=== PATIENT | female | born 1980 | race Caucasian/White ===

== ENCOUNTER 2017-04-11 19:59 | Inpatient (IN) | payer OTHER ==
--- NOTE | 2017-04-11 20:08 | EDPHY ---
H & P Stated Complaint: M1, SI with plan - Personal History LMP (Females 10-55): IUD In Place Current Tetanus/Diphtheria Vaccine: Yes Tetanus Vaccine Date: 2011 - Medical/Surgical History Hx Asthma: No Hx Chronic Respiratory Disease: No Hx Diabetes: No Hx Cardiac Disease: No Hx Renal Disease: No Hx Cirrhosis: No Hx Alcoholism: Yes Hx HIV/AIDS: No Hx Splenectomy or Spleen Trauma: No Other PMH: endometreosis and dysplasia surgery in 2011, oral surgery 2016, ETOH abuse - Social History Smoking Status: Former smoker Time Seen by Provider: 04/11/17 20:07 Constitutional: Initial Vital Signs Temperature (C) 37 C 04/11/17 20:02 Heart Rate 66 04/11/17 20:02 Respiratory Rate 16 04/11/17 20:02 Blood Pressure 142/101 H 04/11/17 20:02 O2 Sat (%) 96 04/11/17 20:02 O2 Delivery Mode Room Air Allergies/Adverse Reactions: valacyclovir [From Valtrex] Allergy (Verified 04/11/17 20:01) Home Medications: Medication Instructions Recorded Hydrocodon-Acetaminophen 5-325 04/11/17 Nuvaring Vaginal Ring 04/11/17 Medical Decision Making ED Course/Re-evaluation: CHIEF COMPLAINT: Psychiatric evaluation HISTORY OF PRESENT ILLNESS: This patient is a 36 year old female on M1 hold for suicidal ideation. Her therapist initiated the process when the patient revealed she has a plan to end her life on May 15 of this year, the 11th anniversary of being sober from alcohol. The patient has had two prior attempts, once by cutting her wrist and once by taking pills. Per M1 paperwork, she is intent on her plan and is engaging in last interactions with family and friends, and plans to stop seeing her therapist. She denies alcohol use, or "problems with drugs". She did take one hydrocodone yesterday. No recent illness or associated symptoms. REVIEW OF SYSTEMS: A 10 point review of systems was performed and is negative with the exception of the elements mentioned in the history of present illness. PHYSICAL EXAM: General Appearance: Alert, well hydrated, appropriate, and non-toxic appearing. Head: Atraumatic without scalp tenderness or obvious injury Eyes: Pupils equal, round, reactive to light and accommodation, EOMI, no trauma , no injection. Nose: Atraumatic, no rhinorrhea, clear. Throat: There is no erythema or exudates, no lesions, normal tonsils, mucus membranes moist. Neck: Supple, nontender, no lymphadenopathy. Respiratory: No retractions, no distress, no wheezes, and no accessory muscle use. Lungs are clear to auscultation bilaterally. Cardiovascular: Regular rate and rhythm. Good capillary refill all extremities. Gastrointestinal: Abdomen is soft, nontender, non-distended, no masses, no rebound, no guarding, no peritoneal signs. Musculoskeletal: Normal active ROM of all extremities, atraumatic. Neurological: Alert, appropriate, and interactive. Nonfocal neuro exam. Skin: No rashes, good turgor, no nodules on palpation. Past medical history: ETOH abuse Past surgical history: Endometriosis and dysplasia surgery in 2011, oral surgery 2017, Family history: Noncontributory Social history: Lives in [place]. DIFFERENTIAL DIAGNOSIS: The differential diagnosis for the patient's depression included but was not limited to functional and major depression, situational depression, medication side effect, drugs, and alcohol abuse. MEDICAL DECISION MAKING: Patient is in no acute distress and is hemodynamically stable. We are awaiting psychiatric team's evaluation. Patient has known history of psychiatric disorders and is here for evaluation. (Jah Culp) 12:12 a.m.- The patient has been accepted to [address] [place] [address] Od[address] We plan to transfer the patient to their currently. The EMTALA form has been completed by me. (Luz Maria Wang) - Data Points Laboratory Results: Laboratory Results 04/11/17 20:45 04/11/17 20:45 04/11/17 04/11/17 04/11/17 20:45 20:45 20:15 WBC 8.15 10^3/uL 10^3/uL (3.80-9.50) RBC 4.45 10^6/uL 10^6/uL (4.18-5.33) Hgb 13.1 g/dL g/dL (12.6-16.3) Hct 38.9 % % (38.0-47.0) MCV 87.4 fL fL (81.5-99.8) MCH 29.4 pg pg (27.9-34.1) MCHC 33.7 g/dL g/dL (32.4-36.7) RDW 12.4 % % (11.5-15.2) Plt Count 234 10^3/uL 10^3/uL (150-400) MPV 9.7 fL fL (8.7-11.7) Neut % (Auto) 65.9 % % (39.3-74.2) Lymph % (Auto) 26.1 % % (15.0-45.0) Johnston % (Auto) 6.9 % % (4.5-13.0) Eos % (Auto) 0.5 % L % (0.6-7.6) Baso % (Auto) 0.2 % L % (0.3-1.7) Nucleat RBC Rel Count 0.0 % % (0.0-0.2) Absolute Neuts (auto) 5.37 10^3/uL 10^3/uL (1.70-6.50) Absolute Lymphs (auto) 2.13 10^3/uL 10^3/uL (1.00-3.00) Absolute Monos (auto) 0.56 10^3/uL 10^3/uL (0.30-0.80) Absolute Eos (auto) 0.04 10^3/uL 10^3/uL (0.03-0.40) Absolute Basos (auto) 0.02 10^3/uL 10^3/uL (0.02-0.10) Absolute Nucleated RBC 0.00 10^3/uL 10^3/uL (0-0.01) Immature Gran % 0.4 % % (0.0-1.1) Immature Gran # 0.03 10^3/uL 10^3/uL (0.00-0.10) Sodium 139 mEq/L mEq/L (134-144) Potassium 4.0 mEq/L mEq/L (3.5-5.2) Chloride 109 mEq/L mEq/L (97-110) Carbon Dioxide 16 mEq/l L mEq/l (22-31) Anion Gap 14 mEq/L mEq/L (8-16) BUN 11 mg/dL mg/dL (7-23) Creatinine 0.9 mg/dL mg/dL (0.6-1.0) Estimated GFR > 60 Glucose 80 mg/dL mg/dL (70-100) Calcium 9.2 mg/dL mg/dL (8.5-10.4) Salicylates < 1.0 mg/dL L mg/dL (2.0-20.0) Urine Opiates Screen NEGATIVE (NEGATIVE) Acetaminophen < 10 mcg/mL L mcg/mL (10.0-30.0) Urine Barbiturates NEGATIVE (NEGATIVE) Ur Phencyclidine Scrn NEGATIVE (NEGATIVE) Ur Amphetamine Screen NEGATIVE (NEGATIVE) U Benzodiazepines Scrn NEGATIVE (NEGATIVE) Urine Cocaine Screen NEGATIVE (NEGATIVE) U Marijuana (THC) Screen NON-NEGATIVE H (NEGATIVE) Ethyl Alcohol < 10 mg/dL mg/dL (0-10) Departure - Departure Disposition: [facility] IP Clinical Impression: Suicidal ideation Condition: Good Referrals: NONE *PRIMARY CARE P,. [Primary Care Provider] - As per Instructions
[2017-04-11 20:53] LABS: % IMMATURE GRANULYOCYTES 0.4 % (0.0-1.1); ABSOLUTE IMMATURE GRANULOCYTES 0.03 10^3/uL (0.00-0.10); ADD DIFF? NO; ADD MORPH? NO; ADD SCAN? NO; ATYPICAL LYMPHOCYTE FLAG 50 (0-99); FRAGMENT RBC FLAG 0 (0-99); HEMATOCRIT 38.9 % (38.0-47.0); HEMOGLOBIN 13.1 g/dL (12.6-16.3); LEFT SHIFT FLG 0 (0-99); LIPEMIA HEMOLYSIS FLAG 80 (0-99); MEAN CELL HEMOGLOBIN 29.4 pg (27.9-34.1); MEAN CELL HEMOGLOBIN CONCENTR. 33.7 g/dL (32.4-36.7); MEAN CELL VOLUME 87.4 fL (81.5-99.8); MEAN PLATELET VOLUME 9.7 fL (8.7-11.7); PLATELET CLUMPS FLAG 0 (0-99); PLATELET COUNT 234 10^3/uL (150-400); RED BLOOD CELL COUNT 4.45 10^6/uL (4.18-5.33); RED CELL DISTRIBUTION WIDTH 12.4 % (11.5-15.2)
[2017-04-11 21:18] LABS: ANION GAP 14 mEq/L (8-16); CALCIUM 9.2 mg/dL (8.5-10.4); CARBON DIOXIDE 16 mEq/l (22-31); CHLORIDE 109 mEq/L (97-110); CREATININE 0.9 mg/dL (0.6-1.0); ETHANOL SERUM < 10 mg/dL (0-10); GLOMERULAR FILTRATION RATE > 60; GLUCOSE 80 mg/dL (70-100); SALICYLATE < 1.0 mg/dL (2.0-20.0); SODIUM 139 mEq/L (134-144)
[2017-04-12] MEDS ORDERED: LORazepam 0.5 MG TAB PO PRN (01:20)
[2017-04-12] MEDS ORDERED: ACETAMINOPHEN 325 MG TAB PO PRN (01:20)
[2017-04-12] MEDS ORDERED: MAGNESIUM HYDROXIDE 30 ML UDCUP PO PRN (01:20)
[2017-04-12] MEDS ORDERED: MAG HYDROX/AL HYDROX/SIMETH 30 ML UDCUP PO PRN (01:20)
[2017-04-12] MEDS ORDERED: NICOTINE POLACRILEX 2 MG GUM B PRN (01:20)
[2017-04-12] MEDS ORDERED: ACETAMINOPHEN 325 MG TAB ONE (01:25)
[2017-04-12] MEDS: IBUPROFEN 600 MG TAB PO PRN ×2 (12:13→21:15)
--- NOTE | 2017-04-12 14:09 | BAPA ---
[f rep st] ADMISSION PSYCHIATRIC ASSESSMENT DATE OF SERVICE: 04/12/2017 CHIEF COMPLAINT: "I have a plan to end my life on May 15. I can't go on like this." HISTORY OF PRESENT ILLNESS: Patient is a 36-year-old female who denies any specific previ ous psychiatric history, who was referred to the hospital on an M1 hold after seeing her therapist i n the community earlier in the day. She apparently had been seeing the therapist for about 3 weeks and had gone to this appointment to terminate stating that she no longer needed therapy and did not want to waste the money because she was planning to kill herself. She described to him, to her ex-h usband, to her recent ex-boyfriend and her boss that she had decided definitively to kill herself an d that she planned to do it on May 15 which was the date of her sobriety anniversary. She stat es that "I'm not depressed and I'm not crazy, I just want to end my life." She states that "I can't go on this way. I am just going through the motions. I thought I would give it a shot and see if there was any help and there wasn't." She denies again any feelings of depression, states that her appetite and sleep have been more normal in the last few weeks than they have been for a long time. She states that she has been journaling and has been writing about her feelings and her thoughts an d writing letters to her friends and family. She notes a number of stressors over the last 6 months including the finalization of her divorce and breaking up with her boyfriend. She states that this is a thought that she has had for some time, but that when she was on vacation in [place] with her b oyfriend about a month ago, she was suddenly overwhelmed with the realization that "I don't want to live anymore." She states they were riding bikes and supposed to be having a good time, but she had no feelings whatsoever and was unhappy and felt like things would never change for her. Patient ates she is not interested in further counseling, does not want to take any psychotropic medicines a nd does not need to be in the hospital. She states she is angry that she was placed on 72-hour hold because her sister was coming to visit from [place] and they had tickets to shows and were going to have a nice weekend. PAST PSYCHIATRIC HISTORY: History significant for 2 previous suicide attempts, one of the age of 12 , one at the age of 16. She states the one at the age of 16 was precipitated by a spontaneous AB. She has no previous psychiatric hospitalizations. She has most recently been seeing Tyrone Draper , phone #[phone]. He is an individual psychotherapist whom she has met with for the past 3 wee ks. She states that this was helpful and she had a good rapport with him, but she does not feel lik e she needs to "waste the money" because she is planning to kill herself. PAST MEDICAL HISTORY: Significant for polycystic ovary disease, endometriosis, chronic lower back p ain. No history of central nervous system disease. ALLERGIES: Valacyclovir. CURRENT MEDICATIONS: Include the NuvaRing and p.r.n. hydrocodone for back pain. SOCIAL HISTORY: The patient was born and raised in [place], [place]. She has lived for several years in [place] after moving here for her 's work. She states that they were for 6 year s and together for 10 years and recently several months ago. She has a sister and her pare nts who still live in [place] to whom she states she has a close relationship. 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 She is a high school graduate with several years of college studying architecture. 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 She reports no significant substance abuse. She does smoke marijuana occasionally, stating that she will "only smoke it if it is being passed around like at a concert," but her urine drug screen w as positive for marijuana. She states that she did smoke it at a concert this past weekend. The arti kendrick notes no other specific stresses at this time. The patient states that she has a group of fri ends to whom she is close who live locally. FAMILY HISTORY: Noncontributory per patient's report. She specifically denies any known history of mood disorders or suicide. ADMISSION LABORATORY: CBC is normal. Serum chemistries are normal. Urine drug screen is positive for marijuana. MENTAL STATUS EXAMINATION: Reveals a robust-appearing female who is neatly and casually d ressed. She interacts well with the examiner, displaying a euthymic, stable and appropriate affect and good social skills. Her mood is described as "fine." Her thought process is linear and goal di rected. Her thought content reveals no evidence of psychosis. She is alert and oriented to person, place, time, and situation and her sensorium is clear. Her intellect appears to be at least averag e as evidenced by her educational and occupational histories, fund of knowledge, and vocabulary. Sh e continues to endorse thoughts of suicide with a concrete plan to kill herself but will not disclos e what this is. Her insight and judgment appear to be marginal. IMPRESSION: Possible depressive disorder, possible cluster B personality traits, acute suicidality with plan, marginal supports, multiple recent relationship losses, work stress, separation from [facility] supports. Patient is a 36-year-old female with no particular psychiatric history, though she has had 2 previous overdoses. She appears to be in a rather enmeshed relationship with her recent ex-boyfr iend and has tremendous ambivalence about this, is closely linked to her thoughts of suicide, and I believe that either the relationship itself or what this has stirred up for her in the presence of a seemingly similar ambivalent relationship that has ended with her is at the root of some of her discontent and dissatisfaction with life that may be contributing to her suicidal thoughts. He r [id number] nature is difficult to understand. There is some help-seeking, help-rejecting flav or to it as she has told all of the people in her life who would react in the predictable way that s he was suicidal, then acts surprised that they acted to protect her. She also acts as if she cannot understand why others would be upset about this and in a somewhat adolescent fashion, she insists t hat it is her right to decide what to do with her life and nobody else should care. She has no evid ence of psychosis and though I believe her behaviors currently are unreasonable, I do not believe ot herwise that she lacks capacity. I do not identify any symptoms of acute mood disorder, be that dep ression or bipolar, and while she has certain cluster B personality traits, I do not identify a prim neo personality disorder at this time. I do not believe she is suffering from an organic illness th at is influencing her thoughts and she is not suffering from any known terminal illness that would j ustify physician-assisted suicide. PLAN: 1. Admit to the behavioral health services inpatient unit on an M1 hold. 2. Conduct serial interviews and try to decide whether or not she meets criteria for continued inpa tient stay due to her suicidality. There is a question as to the proximal nature of it given that s he states that she is going to kill herself in approximately a month. This would draw into some marcie bt the immediacy. It does seem a ruiz mariia statement, however, and at this time there would be no w ay to consider discharge until adequate evaluation is completed. 3. We will place on suicide precautions. 4. Will hold off on any medications till the diagnostic picture is clear as she is refusing them an yway. 5. Will communicate with patient's therapist and hopefully her family and hope to convene a family meeting if only with her sister who is supposed to be coming to town. Estimated length of stay is 5-7 days. /[id number]/MODL
--- NOTE | 2017-04-13 00:55 | BCON ---
[f rep st] BEHAVIORAL HEALTH CONSULTATION INTERNAL MEDICINE CONSULTATION DATE OF CONSULTATION: 04/12/2017 REFERRING PHYSICIAN: Dr. Odell REASON FOR REFERRAL: Medical clearance for inpatient behavioral health stay. HISTORY OF PRESENT ILLNESS: This patient was sent to [facility] on an M1 hold from her mental health clinic, where she had told her therapist that she was intending on committing suicide. She had a date in mind, which was May 15, which is the 10-year anniversary of sobriety, and she had made arrangements for care of her dog. She was evaluated by the mental health team and admitted for further psychiatric care. She currently reports that she feels emotionally numb. She also reports that she has back pain. She has an upper respiratory infection. She exacerbated her back pain through sneezing but saw a chiropractor several days ago, and her back pain has been improving. PAST MEDICAL HISTORY: 1. Polycystic ovary syndrome. 2. Back pain. 3. Ovarian cyst with dysplasia. 4. Genital herpes. PAST SURGICAL HISTORY: She has had a cyst removed from an ovary. MEDICATIONS PRIOR TO ADMISSION: 1. NuvaRing vaginal control. 2. Hydrocodone/acetaminophen 5/325 p.r.n. ALLERGIES: She reports an allergic reaction to valacyclovir which caused hives. SOCIAL HISTORY: She is single. She lives alone. She has a dog. 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 She is a nonsmoker. She uses occasional marijuana and "Tamy" when she attends concerts, and she reports that she has been abstinent from alcohol for most of 10 years. FAMILY HISTORY: Noncontributory. REVIEW OF SYSTEMS: She reports upper respiratory infection symptoms, though these are not severe. She reports back pain which has been improved, and she is using ice and she has found ibuprofen or acetaminophen to be helpful. She reports weight loss since October with a reduced appetite. She denies any symptoms referable to the thyroid including not feeling excessively warm or cold. She reports she always feels cold and that there has been no change in this. She does not have diaphoresis. She does not feel excessively fatigued. She has no tremor. Otherwise, a 10-point review of systems is negative. PHYSICAL EXAMINATION: VITAL SIGNS: Blood pressure is 136/66, heart rate is 60 , respiratory rate is 14, oxygen saturation is 97% on room air, temperature is 36.6 degrees centigrade. Her weight is 65.8 kg for a body mass index of 22. GENERAL: This is a well-nourished, well-developed woman. Appears her chronologic age. Cooperative and in no acute distress. HEENT: Extraocular movements are intact. Mucous membranes are moist. Dentition is in good condition. She has an uncrowded airway, Mallampati class 1. There is no posterior oropharyngeal mucus noted. NECK: Supple. HEART: There is a regular rate and rhythm with no murmurs, rubs, or gallops. LUNGS: Clear to auscultation bilaterally. ABDOMEN: Soft, nontender, nondistended with normoactive bowel sounds. EXTREMITIES: There is no cyanosis, clubbing, or edema. NEUROLOGIC: She is alert and oriented x3. Cranial nerves 2 through 12 are grossly intact. There is no focal weakness, and sensation is intact to light touch. LABORATORY STUDIES: Drawn in the emergency department. CBC was overall within normal limits. She had a minor relative decrement of eosinophils and basophils of no clinical significance. Serum chemistry revealed a slightly low carbon dioxide at 16. Otherwise, renal function and electrolytes were within normal limits. Toxicology screen in the serum was negative for salicylates, acetaminophen, or ethyl alcohol and in the urine was non-negative for marijuana but negative for other substances of abuse. ASSESSMENT/RECOMMENDATIONS: 1. Mental health issues. Pending further evaluation and management per Psychiatry and the mental health team. 2. Back pain with no neurologic deficit. Advised continued acetaminophen and ibuprofen. Metaxalone is prescribed also, and I am unclear of its utility in this situation. 3. Weight loss, likely related to her psychiatric state with reduced appetite. If she ceases to be depressed and suicidal but continues to have reduced appetite and continues to lose weight, then further evaluation would be indicated, especially given her history of what she described as dysplasia found in a uterine cyst after surgery. Would advise in that eventuality, screening for cancer or metastatic disease, as well as usual evaluation for weight loss. 4. Anorexia, likely related to her psychiatric condition. 5. Polycystic ovary syndrome. She uses NuvaRing both for contraception and to regulate her menstrual cycle. She is unclear of the next date on which the NuvaRing should be removed; it is typically worn for a 3-week cycle with a 1- week break. She reports that she changes it on a Monday but is not sure what Monday. This information is on her calendar at work. She was advised that there is no harm to wearing the NuvaRing for a 4-week period instead of a 3 -week period. If she is to remain on inpatient behavioral health for greater than 1 week, advised that she obtain information on the date on which the NuvaRing should be removed from her work calendar. I see no medical contraindications to this patient's continued stay on the inpatient behavioral health unit or to any psychiatric medications or procedures. Thank you very much for including me in the care of this patient, and please do not hesitate to contact me or the hospitalist service should there be need for further medical evaluation. /[id number]/MODL MTDD
[2017-04-13] MEDS: IBUPROFEN 600 MG TAB PO PRN ×2 (08:26→14:46)
[2017-04-13] MEDS: METAXALONE 800 MG TAB PO PRN (15:51)
--- NOTE | 2017-04-13 16:55 | SOAPPROG ---
SOAP Progress Note Assessment/Plan: Assessment: Plan: 04/13/17 16:57 Difficult clinical presentation continues. She is refusing to speak openly with me, is demonstrating help-seeking, help-rejecting behaviors, and adolescent psychological stance. She is clearly a risk to herself due to her ongoing SI and refusal to disclose underlying stressors or thoughts or plans for self-harm. She is refusing to involve her family stating, "They are not supports. They don't care about me." I have asked CC to reach out to them and would like to convene a family meeting if only by phone. Will continue active monitoring for now and attempt to build rapport. Subjective: Pt seen, discussed with staff. Reports feeling angry that she is in the hospital. Noted to be irritable and guarded with staff. Very matter of fact in regards to ongoing SI continuing to state, "I will kill myself, but not right now." She then states, "I'm just being honest with you. I don't see what the big deal is." She states she is receiving no help in the hospital but spends most of her time in room, interacting minimally with others. She then states that could give me some insights into her condition but "I don't trust you." She states she doesn't want to talk to me any more due to this lack of trust. I indicated to her that I cannot help her or know what to do with her treatment if she is unwilling to be open with me. She states she will not change her position on this. Objective: Vital Signs Temp Pulse Resp BP Pulse Ox 36.4 C 76 14 113/65 95 04/13/17 06:00 04/13/17 06:00 04/13/17 06:00 04/13/17 06:00 04/13/17 06:00 MSE: Calm, uncooperative, guarded, irritable. Affect is constricted, irritable. Mood is "not happy." TP is linear. TC reveals no psychosis. Continues to identify active SI with a "specific plan" though will not reveal this. - Time Spent With Patient Time Spent With Patient: 25" - Pending Discharge Pending Discharge Within 24 Hours: No ICD10 Worksheet Patient Problems: Problems Problem Status Onset Suicidal ideation Acute
[2017-04-14] MEDS: IBUPROFEN 600 MG TAB PO PRN (08:07)
[2017-04-14] MEDS ORDERED: buPROPion XL 150 MG TAB PO SCH (11:00)
[2017-04-14] MEDS: METAXALONE 800 MG TAB PO PRN (13:10)
--- NOTE | 2017-04-14 15:31 | SOAPPROG ---
SOAP Progress Note Assessment/Plan: Assessment: Plan: 04/13/17 16:57 Difficult clinical presentation continues. She is refusing to speak openly with me, is demonstrating help-seeking, help-rejecting behaviors, and adolescent psychological stance. She is clearly a risk to herself due to her ongoing SI and refusal to disclose underlying stressors or thoughts or plans for self-harm. She is refusing to involve her family stating, "They are not supports. They don't care about me." I have asked CC to reach out to them and would like to convene a family meeting if only by phone. Will continue active monitoring for now and attempt to build rapport. 04/14/17 15:28 Remains guarded, regressed and oppositional. Continues to adamantly insist she will kill herself on a specific date. Remains detached and concrete in an odd, regressed fashion. Clearly a danger to herself. Will place on ST. I discussed to her the path to voluntary treatment and/or d/c is the formulation of a reasonable safety plan. I have no current goals for medication treatment. Will continue serial clinical interviews and close observation. Subjective: Pt seen, discussed with staff. Reports enjoying art group. Shmuel a picture of an outdoor scene with green grass, gallegos, trees and a full, bright sun and blue jewel. Interactive with me, less oppositional. She states she is willing to take medications "if that will get me out of here." Continues to report being "100% sure I want to end my life." Continues to state she has a specific plan but will not disclose it. Isolating in room, interacting little with others. Objective: Vital Signs Temp Pulse Resp BP Pulse Ox 36.9 C 66 18 112/71 99 04/14/17 06:00 04/14/17 06:00 04/14/17 06:00 04/14/17 06:00 04/14/17 06:00 - Time Spent With Patient Time Spent With Patient: 25" - Pending Discharge Pending Discharge Within 24 Hours: No Pending Discharge Within 48 Hours: No ICD10 Worksheet Patient Problems: Problems Problem Status Onset Suicidal ideation Acute
[2017-04-15] MEDS: IBUPROFEN 600 MG TAB PO PRN (10:56)
--- NOTE | 2017-04-15 16:16 | SOAPPROG ---
SOAP Progress Note Assessment/Plan: Assessment: Plan: Patient still endorsing SI, but able to contract for safety in hospital. She refuses to discuss SI with MD or staff, but claims she would talk about it with her outpatient therapist. Refusing all psych meds b/c they aren't "right for me. " Will continue on [facility] d/t SI. Will try to work out some type of safety contract with her outpatient therapist so patient would agree to discharge directly from hospital to therapy appointment and outline plan of action in event she begins to plan or intend to harm herself. Will ask child care director to contact Aftab Bill's office on Monday and draft a preliminary safety plan with patient. If she agrees to follow the plan and alert Aftab or someone she designates instead of acting on thoughts to harm herself, then she could conceivably be discharged early next week. 04/15/17 16:16 Subjective: Met with patient, reviewed chart and discussed with staff. Patient presents with bright affect, smiling, pleasant. Initially she was somewhat uncooperative , stating she didn't trust her current psychiatrist and didn't want to talk to me either. However, she did eventually agree to talk to me and said she didn't want to be kept in hospital against her will and thought she should be allowed to leave. She matter of factly stated "the only way I can see you letting me leave here is if I change my mind (about wanting to kill herself)." Patient has no insight into why this is such a serious matter and why it was sufficient reason to keep her in hospital. When MD asked why she was having suicidal thoughts, patient said, "I don't trust you, I'm not going to talk about it." She said she trusted her therapist, Aftab Bill, and has been able to discuss her SI with him, but "it took me along time to trust him." Patient adamantly refused to take any meds. When MD inquired reason, she said, "Oh, my god, look around you at the people in here, that proves my point." She stated that "everyone has different chemistry" and says she feels meds will "cloud my mind" and doesn't think they are "right for me." Patient stated "I have no wish to harm myself in here" but was still not able to contract for safety outside the hospital. She denies any psychotic sxs. Objective: Vital Signs Temp Pulse Resp BP Pulse Ox 36.9 C 54 L 14 100/75 94 04/15/17 06:00 04/15/17 06:00 04/15/17 06:00 04/15/17 06:00 04/15/17 06:00 MSE Pleasant, cooperative, guarded. Affect: bright Mood: "Not too bad" TP: linear, concrete, poor reasoning TC: Denies AH/VH, endorses thoughts of suicide but no plan or intent at current time Insight/Judgment: Poor/Poor - Pending Discharge Pending Discharge Within 24 Hours: No ICD10 Worksheet Patient Problems: Problems Problem Status Onset Suicidal ideation Acute
--- NOTE | 2017-04-16 17:25 | SOAPPROG ---
SOAP Progress Note Assessment/Plan: Assessment: 04/15/17 16:16 Plan: Patient still endorsing SI, but able to contract for safety in hospital. She refuses to discuss SI with MD or staff, but claims she would talk about it with her outpatient therapist. Refusing all psych meds b/c they aren't "right for me. " Will continue on [facility] d/t SI. Will try to work out some type of safety contract with her outpatient therapist so patient would agree to discharge directly from hospital to therapy appointment and outline plan of action in event she begins to plan or intend to harm herself. Will ask life care planner to contact Aftab Bill's office on Monday and draft a preliminary safety plan with patient. If she agrees to follow the plan and alert Aftab or someone she designates instead of acting on thoughts to harm herself, then she could conceivably be discharged early next week. 04/16/17 17:25 Patient is saying today that she has no intention of killing herself. She says, "I'm not going to hurt myself." She talked at length with CC and came up with plan to stay with her ex- after discharge so she will have someone to supervise her and support her treatment. She says she will go back to seeing her current therapist or get a new one, she's not sure. MD encouraged patient to f/u with current provider for continuity and b/c she says she trusts him. 1. Patient not interested in taking any medications. 2. Patient has f/u appt with [facility] counseling center on 04/21/17, but also agreed to contact her current therapist, Tyrone Draper on Monday to make an appointment. 3. CC will contact ex- prior to d/c to discuss aftercare plan and make sure he agrees to supervise patient after d/c and has no concerns about her ability to stay safe. 4. Potential d/c on 04/17/17 Subjective: Patient presents anxious, labile, tearful at times. MD met with patient with RN present and discussed case with staff. Patient says "I'm not going to kill myself" and "my ex- has agreed to stay with me when I get out." She adds , "I'm not planning on hurting myself." She is very insistent that she "get out of this place" because "it isn't helping me being in here." Patient also reported to MD that she can't stand to "be around these people (other patients) " and wanted MD to know "I'm not like these people." Patient had lengthy conversation with CC earlier today. Pt told CC that she would prefer to see someone "in my network" even though she agreed to intake appt with [facility] on 04/21/17. When MD met with patient for the second time this evening, MD brought up the fact that patient told him yesterday it took her "a long time to get to trust" her current therapist, Tyrone Draper, and today she was telling CC that she wanted to see another therapist. MD felt this would only delay her progress in treatment if she wasn't able to establish rapport with a new therapist or had to wait until she could trust a new therapist to discuss her most personal problems. Patient had no insight into why this mattered. She said, "If I need to have a therapist appointment, I'll get one, I just need to get out of here." MD suggested patient make an appointment with her current therapist for immediately after discharge and discuss her situation with someone who already knows her and whom she trusts. Then if patient is still interested in finding a new therapist, she can always make a transition, but wait until a more appropriate time rather than make such a change right after getting out of the hospital. MD said he would check with patient tomorrow to see if she agreed to take his advice. Objective: Vital Signs Temp Pulse Resp BP Pulse Ox 36.9 C 53 L 14 102/52 L 96 04/16/17 06:00 04/16/17 06:00 04/16/17 06:00 04/16/17 06:00 04/16/17 06:00 MSE: Labile, tearful at times. Affect: Anxious, labile Mood: Anxious TP: Illogical TC: Denies any AH/VH, states "I'm not going to kill myself" and "I won't hurt myself" Adamantly denies any thoughts, plan or intent to hurt herself or anyone else Insight/Judgment: Poor/Fair - Time Spent With Patient Time Spent With Patient: 30" - Pending Discharge Pending Discharge Within 24 Hours: Yes Pending Discharge Date: 04/17/17 (CC to contact ex- prior to d/c to make sure he is comfortabel wtih patient coming to stay with him and that he feels she will be safe. Will also need f/u appt with Tyrone Draper) Pending Discharge Time: 15:00 ICD10 Worksheet Patient Problems: Problems Problem Status Onset Depression, major, severe recurrence Acute - ICD10 Problem Qualifiers (1) Suicidal ideation (2) Depression, major, severe recurrence Qualifiers: Psychotic features: without psychotic features Qualified Code(s): F33.2 - Major depressive disorder, recurrent severe without psychotic features
[2017-04-18 06:38] VITALS: BP 112/73; PULSE 73; RESP 16; TEMP 98.2; O2SAT 98
--- NOTE | 2017-04-18 08:59 | SOAPPROG ---
SOAP Progress Note Assessment/Plan: Assessment: Plan: 04/13/17 16:57 Difficult clinical presentation continues. She is refusing to speak openly with me, is demonstrating help-seeking, help-rejecting behaviors, and adolescent psychological stance. She is clearly a risk to herself due to her ongoing SI and refusal to disclose underlying stressors or thoughts or plans for self-harm. She is refusing to involve her family stating, "They are not supports. They don't care about me." I have asked CC to reach out to them and would like to convene a family meeting if only by phone. Will continue active monitoring for now and attempt to build rapport. 04/14/17 15:28 Remains guarded, regressed and oppositional. Continues to adamantly insist she will kill herself on a specific date. Remains detached and concrete in an odd, regressed fashion. Clearly a danger to herself. Will place on ST[facility]. I discussed to her the path to voluntary treatment and/or d/c is the formulation of a reasonable safety plan. I have no current goals for medication treatment. Will continue serial clinical interviews and close observation. 04/18/17 08:58 Pt is now denying SI. She is superficial and manipulative. Will have a meeting with her and her ex- to try to better understand the overall picture. Despite her SI she does not appear to be depressed per se and is refusing medications. CCM. Subjective: LATE ENTRY FOR 04/17/17 Pt seen, discussed with staff, chart reviewed. She attended groups over the weekend, but is isolating in her room this morning. She states, "I only want to go home." She is now denying SI, though appears manipulative to staff. She reluctantly agrees to allow her ex- to come in for a family meeting. She then refuses to talk to me any more. States, "If you're not going to let me leave, I'm not going to talk to you any more." Objective: Vital Signs Temp Pulse Resp BP Pulse Ox 36.8 C 73 16 112/73 98 04/18/17 06:00 04/18/17 06:00 04/18/17 06:00 04/18/17 06:00 04/18/17 06:00 - Time Spent With Patient Time Spent With Patient: 15" ICD10 Worksheet Patient Problems: Problems Problem Status Onset Depression, major, severe recurrence Acute
--- NOTE | 2017-04-18 23:22 | BDS ---
[f rep st] BEHAVIORAL HEALTH DISCHARGE SUMMARY REASON FOR ADMISSION: Patient is a 36-year-old female with no specific psychiatric history, who was referred to the hospital on an M1 hold by her therapist after having presented to an outpatient psychotherapy appointment and reporting a plan to kill herself. She had said that she was going to kill herself on May 15, which is her date of sobriety because she was essentially finished with life and did not want to go on. She had been working with the therapist on family of origin issues and relationship issues, had recently broken up with a boyfriend and had recently her . These were all salient issues at the time of admission, and before though the patient was initially unable to identify any specific cause for her thoughts of suicide though was quite insistent about them. A full description of the events preceding admission can be found in her admission history dated 04/12/2017. ADMITTING DIAGNOSES: Possible depressive disorder. 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 Acute suicidality with plan. Marginal supports. Multiple recent relationship losses. Work stress and separation from natural supports. ADMISSION PHYSICAL EXAMINATION: Performed by Dr. Torrey Avalos revealed some chronic back pain though no other acute physical findings. ADMISSION LAB: CBC was normal. Serum chemistries are normal. Urine drug screen is positive for marijuana. HOSPITAL COURSE: Patient was [facility] on an M1 hold. She was initially open and conversant though particularly concrete. She appeared to be somewhat regressed and interacting in an adolescent manner in the sense of making fairly dramatic statements and then acting as if they should just be respected. An example would be stating that she is definitely going to kill herself and there is nothing anyone else could do, but nobody should care about her because it is her life anyway. As the time in the hospital progressed, the patient became more guarded. She told me on the third day of hospitalization that she did not trust me and did not want to work with me. I offered that she could speak with the other psychiatrist, Dr. Odell, and she declined this stating that she did not want to talk to anybody because her mind was essentially made up and there was no point in it. I reviewed with the patient specific signs and symptoms of depression, and she did not meet criteria for a major depressive disorder or bipolar disorder. She said repeatedly that she did not want any medications including antidepressants. I saw no indication for scheduled psychotropic medications and none were prescribed during her stay. She had some dysphoria related to the recent break-up with her boyfriend and we attempted to explore this though she was fairly guarded about it. She stated that she already talked to her outpatient therapist at length and did not want to repeat that, and also that she did not trust me. I interacted with her on a daily basis despite her having asked me not to talk to her to check in. These were typically fairly brief, lasting about 15 minutes where I gave her the opportunity to talk to me about anything she wanted to and to ask any questions that she needed to. She did open up somewhat during those sessions, but then would state that she did want to go back through things again. Over the final 3 days of her hospitalization, she states that she had some significant moments of insight. One came from reading the literature we have on suicide, specifically the book that patient's read on the subject. She states that this resonated with her and that she really came to understand the impact that suicide would have on others, including her family. She reached out to her ex-, who is her primary support and he was helpful to her in this respect as well. We were able to convene a family meeting with the patient , the home care rn, the nurse, her ex- and herself on the day of discharge, and she was very open that she felt differently about suicide than she had previously. She stated that she felt supported and wanted to "just take care of myself now." She adamantly denied having a specific date or plan to kill herself and stated that while "I always have thoughts of that, I will not act on it when I leave the hospital." We discussed openly with her that it is clear that she would say that even if she did not mean it because she wants to leave the hospital, and she seemed genuine to all present that this was not the case. She was motivated to go to the intensive outpatient program through our [facility]patient [facility] and wanted to return to work, get her dog, and see friends. She was forward thinking and positive and was tearful at times, but also laughed throughout the session as well. It was agreed by all at the end of the session that the patient was safe to be discharged as there was no imminence to her thoughts of self harm and no specific plan or intent. CONDITION ON DISCHARGE: Stable. Her affect was euthymic, stable, and appropriate. There was no evidence of psychosis and she was voicing no active suicidal ideations. She was forward thinking and hopeful, and eager to participate in intensive outpatient psychotherapy and group treatment. DISCHARGE MEDICATIONS: None. DISCHARGE DIAGNOSES: Adjustment disorder with mixed disturbances of emotions and conduct. Multiple recent relationship losses and life changes. Work stress. DISPOSITION: Patient left the hospital of her own accord with her personal vehicle. FOLLOWUP: With the intensive outpatient program at [facility] on April 21. LEGAL COURSE: Patient was placed on a short-term certification at the expiration of her M1 hold. The short-term certification was discontinued at the time of her discharge. /[id number]
== END 2017-04-18 13:35 | disposition home or self-care (01) | DRG 882 ==
LOC: BBEH 04-12 00:49
PROVIDERS: ADMIT Psychiatry & Neurology Psychiatry; ATTEND Psychiatry & Neurology Psychiatry
DX: F43.25 Adjustment disorder with mixed disturbance of emotions and conduct (principal); R45.851 Suicidal ideations; Z56.6 Other physical and mental strain related to work; M54.5 Low back pain; Z87.891 Personal history of nicotine dependence; Z87.898 Personal history of other specified conditions
CPT/HCPCS: 80305; G0480